=== PATIENT | male | born 1985 | race African-American/Black ===

== ENCOUNTER 2018-08-01 12:37 | Emergency (ER) | payer OTHER ==
[~2018-08-01] VITALS: Ht 185.4 cm; Wt 108.9 kg
[2018-08-01] MEDS ORDERED: NKM (12:55)
--- NOTE | 2018-08-01 13:17 | Emergency Room Report ---
History of Present Illness General Chief Complaint: Earache Source: Patient Present Illness HPI 32-year-old male patient presents ER complaining of right-sided ear pain for the past day. Reports excessive cerumen that he attempted to remove using a Q- tip and hydrogen peroxide. Reports ear discharge during that time. Reports decreased hearing from right ear. Denies fever, chest pain, shortness of breath. Denies recent swimming. Allergies: Coded Allergies: No Known Allergies (Unverified , 08/01/18) Patient History Past Medical History: see triage record Reviewed Nursing Documentation: PMH: Agreed; PSxH: Agreed Nursing Documentation-PMH Past Medical History: No Stated History Review of Systems All Other Systems: negative except mentioned in HPI Physical Exam Vital Signs Date Time Temp Pulse Resp B/P (MAP) Pulse Ox O2 Delivery O2 Flow Rate FiO2 08/01/18 12:51 98.9 80 16 146/97 97 Room Air 99.0 Sp02 EP Interpretation: reviewed, normal General Appearance: well appearing, no apparent distress, alert, GCS 15, non- toxic Head: normocephalic, atraumatic Eyes: bilateral eye normal inspection, bilateral eye PERRL ENT: hearing grossly normal, normal pharynx, no angioedema, normal voice, TMs + canals normal - excessive cerumen bilaterally, no pain with ear pulling, uvula midline, moist mucus membranes Neck: full range of motion Respiratory: lungs clear, normal breath sounds, no rhonchi, no respiratory distress, no accessory muscle use, no wheezing, speaking full sentences Cardiovascular #1: regular rate, rhythm, no edema Musculoskeletal: back normal, digits/nails normal, gait/station normal, normal range of motion, non-tender Psychiatric: mood/affect normal Skin: no rash Lymphatic: no adenopathy Medical Decision Making PA Attestation Dr. Estrella is my supervising Physician whom patient management has been discussed with. Diagnostic Impression: Primary Impression: Cerumen impaction ER Course Pt presents to ED c/o ear pain. DDX considered but are not limited to rhinitis, sinusitis, otitis media, otitis externa, cerumen impaction. VITAL SIGNS are WNL, patient is afebrile. Ordered hydrogen peroxide. ED INTERVENTIONS: PE shows impacted cerumen in ear. No mastoid swelling or erythema, no rash or vesicles on face. Patient ear cleaned and flushed with saline. patient reports symptoms have improved following saline flush. Repeat physical exam shows non erythematous TM, nonerythematous or edematous ear canal, no TM rupture, no TM effusion. Likely cerumen impaction causing pain symptoms. Patient instructed not to use Q-tips. Follow-up with primary care provider for further treatment and referral. Discuss referral to ENT. DISCHARGE: Rx provided for Debrox At this time pt is stable for d/c to home. patient resting comfortably, no acute distress, nontoxic appearing, talking without difficulty, smiling. Patient to take medications as instructed Will provide with patient care instructions and any necessary prescriptions. Care plan and follow-up instructions provided. Patient instructed to follow-up with primary care in 3 - 5 days. Patient questions asked and answered. patient reports understanding and agreement treatment plan. ER precautions given. Patient instructed to return to ER immediately for any new or worsening of symptoms including but not limited to increasing SOB, persistent fever. - Please note that this Emergency Department Report was dictated using [employer] manager technology software, occasionally this can lead to erroneous entry secondary to interpretation by the dictation equipment. Last Vital Signs Date Time Temp Pulse Resp B/P (MAP) Pulse Ox O2 Delivery O2 Flow Rate FiO2 08/01/18 12:51 98.9 80 16 146/97 97 Room Air 99.0 Status: improved Disposition: HOME, SELF-CARE Condition: Stable Scripts Carbamide Peroxide (DEBROX) 15 Ml Drops 10 DROP BOTH EARS TWICE A DAY for 4 Days, ML 0 Refills Prov: Jaskaran Love 08/01/18 Patient Instructions: Cerumen Impaction Additional Instructions: Followup with primary care provider in 3 -5 days. Do not use Q-tips. Take medications as directed. Patient questions asked and answered. ER precautions given, patient instructed to return to ER immediately for any new or worsening of symptoms. Jaskaran Love Aug 01, 2018 13:17
[2018-08-01] MEDS ORDERED: DEBROX15 M1 BOTH EARS (13:33)
[2018-08-01 13:46] VITALS: BP 125/87
== END 2018-08-01 13:46 | disposition home or self-care (01) ==
LOC: EMR 13:20
DX: H61.23 Impacted cerumen, bilateral (principal)
CPT/HCPCS: 99282